=== PATIENT | female | born 1975 | race Caucasian/White ===

== ENCOUNTER → 2022-07-05 12:35 | Outpatient (CLI) | payer OTHER, SELFPAY ==
[2022-07-05 13:00] LABS: Basophils # 0.1 K/mm3 (0-0.2); Basophils % 0.7 % (0.1-2.0); Eosinophils # 0.4 K/mm3 (0.0-0.4); Eosinophils % 3.7 % (0.1-12.0); Hematocrit 44.8 % (37.0-47.0); Hemoglobin 14.9 g/dL (12.2-16.2); Lymphocytes # 2.9 K/mm3 (0.7-4.5); Lymphocytes % 29.3 % (10-50); Mean Corpuscular HGB Conc 33.2 g/dL (31.8-35.4); Mean Corpuscular Hemoglobin 30.9 pg (27.0-31.2); Mean Platelet Volume 8.3 fl (7.4-10.4); Monocytes # 0.4 K/mm3 (0.1-1.0); Monocytes % 4.1 % (1.7-9.3); Neutrophils # 6.1 K/mm3 (1.8-7.8); Neutrophils % 62.1 % (37.0-80.0); Platelet Count 250 K/mm3 (142-424); Red Blood Count 4.82 M/mm3 (4.20-5.40); Red Cell Distribution Width 13.3 % (11.5-17.5); White Blood Count 9.9 K/mm3 (4.8-10.8)
[2022-07-05 13:57] LABS: Alanine Aminotransferase 19 U/L (12-78); Albumin Level 4.2 g/dl (3.5-5.0); Alkaline Phosphatase 109 U/L (38-126); Aspartate Amino Transferase 27 U/L (14-36); Bilirubin,Indirect 0.4 mg/dL (0.0-0.9); Bilirubin,Total 0.4 mg/dl (0.2-1.3); Bilirubin,Unconjugated 0.4 mg/dL (0.0-1.1); Blood Urea Nitrogen 6 mg/dl (7-17); Carbon Dioxide 27 mmol/L (22.0-30.0); Chloride 100 mmol/L (98-107); Chol/HDL Ratio 8.8 (1-3.5); Cholesterol 307 mg/dl (140-200); Estimated Glomerular Filt Rate 90 ml/min (>60); GFR (African American) 109 ML/MIN (>60); Glucose 90 mg/dl (74-100); HDL Cholesterol 35 mg/dl (40-60); Sodium 139 mmol/L (136-145); Total Protein,Serum 6.7 g/dl (6.3-8.2); Triglycerides 382 mg/dl (30-150); VLDL Cholesterol 76 mg/dL (0-40)
[2022-07-05 14:08] LABS: Direct LDL Cholesterol 209.37 mg/dL (100-129)
[2022-07-05 14:13] LABS: Free T4 (Free Thyroxine) 0.66 ng/dl (0.78-2.19)
[2022-07-05 14:27] LABS: Thyroid Stimulating Hormone 1.15 uIU/mL (0.465-4.68)
== END ==
LOC: LAB 12:37
PROVIDERS: PCP Family Medicine; Visit Provider Internal Medicine
DX: R06.00 Dyspnea, unspecified (principal); R07.89 Other chest pain; R00.2 Palpitations; I10 Essential (primary) hypertension; R60.9 Edema, unspecified; E11.9 Type 2 diabetes mellitus without complications; E78.2 Mixed hyperlipidemia; I73.9 Peripheral vascular disease, unspecified; I63.9 Cerebral infarction, unspecified; Z72.0 Tobacco use
CPT/HCPCS: 36415; 80048; 80061; 80076; 84439; 84443; 85025; 93270